=== PATIENT | female | born 1975 | race Caucasian/White ===

== ENCOUNTER 2022-10-30 10:57 | Emergency (ER) | payer MEDICARE | END 2022-10-30 13:46 | disposition home or self-care (01) | LOC: MW.ED 10:57 | DX: M25.572 Pain in left ankle and joints of left foot (principal) | CPT/HCPCS: 73610-26-LT; 73610-LT; 99283; 99284 ==

== ENCOUNTER 2023-03-01 10:06 | Emergency (ER) | payer MEDICARE, MEDICAID | END 2023-03-01 10:58 | disposition home or self-care (01) | LOC: MW.ED 10:06 | DX: B08.4 Enteroviral vesicular stomatitis with exanthem (principal) | CPT/HCPCS: 99282; 99283 ==

== ENCOUNTER 2023-03-11 20:26 | Emergency (ER) | payer MEDICAID, MEDICARE | END 2023-03-11 21:39 | disposition home or self-care (01) | LOC: MW.ED 20:26 | DX: R23.4 Changes in skin texture (principal) | CPT/HCPCS: 99282 ==